=== PATIENT | female | born 1930 | race Caucasian/White ===

== ENCOUNTER → 2018-05-06 11:19 | Outpatient (CLI) | payer MEDICARE, BC ==
[2015-09-21 08:40] VITALS: BMI 20.3
[~2018-05-06 11:19] MED LIST: ALDACTONE25 MG PO; ALDACTONE50 MG PO; ASPIRIN EC81 M1 PO; ASPIRIN325 MG PO; CELEXA20 MG PO; COLACE100 MG PO; COREG 3.1253.125 MG PO; COUMADIN5 MG PO; HYDROCODONE-APA1 TAB PO; IPRAT-ALBUT 0.5-3 ML UPD; LANOXIN125 MCG PO; LASIX40 MG PO; LEVAQUIN250 MG PO; LISINOPRIL2.5 MG PO; LISINOPRIL5 MG PO; MIRALAX17 GM PO; NORCO 5/325 TAB1 TA1 PO; ONGLYZA5 MG PO; PERCOCET 10/3251 TA1 PO; PLAVIX75 MG PO; TEFLARO IV; TRADJENTA5 MG PO; ULTRAM50 MG PO; XARELTO10 MG; XARELTO15 MG PO
--- NOTE | 2018-05-07 11:54 | EC ---
PATIENT:NAWAF REGAN DATE OF SERVICE: 05/06/18 SEX: F MEDICAL RECORD: [id number] DATE OF : [birth year] LOCATION:[facility] AGE OF PATIENT: 87 ADMISSION DATE: 05/06/18 REFERRING PHYSICIAN: INTERPRETING PHYSICIAN: DAMASO ADAMS MD ECHOCARDIOGRAM REPORT ECHO CHARGES 4 ECHO COMPLETE Date: 05/06/18 CLINICAL DIAGNOSIS: AFIB HX OF PACER ECHOCARDIOGRAPHIC MEASUREMENTS (adult normal given) AC root (d.<3.7cm) 2.9 cm LV Septum d (<1.2 cm> 1.1 cm Valve Excursion 1.3 cm LV Septum (systole) 1.4 cm Left Atria (s.<4.0cm> 3.6 cm LVPW d(<1.2cm) 1.2 cm RV (d.<2.3cm) 3.3 cm LVPW (sytole) 1.7 cm LV diastole(<5.6CM) 5.5 cm MV E-F(>70mm/sec) cm LV systole 4.3 cm LVOT Diameter 1.7 cm MV exc.(>10mm) 1.3 cm Est.ejection fraction (50-75%) % DOPPLER: LVIT cm/sec A 67.0 cm/sec E 36.0 cm/sec LA cm/sec RVSP 23 mmHg LVOT 87 cm/sec AOP1/2T m/s Asc. Ao 123 cm/sec RVOT 67 cm/sec RA cm/sec PA 85 cm/sec AV Gradient Peak 6.02 mmHg AV Mean 3.02 mmHg AV Area 2.0 cm MV Gradient Peak 3.20 mmHg MV Mean 0.80 mmHg MV Area cm COMMENTS: Supervisor [employer]: Sherin CHEN [employer]otype Machinist: 1 Dr. Adams TAPE# PACS Pericardial Effusion N DATE OF SERVICE: 05/06/2018 PROCEDURE: Echocardiogram. FINDINGS: 1. Left ventricular chamber size is within normal limits. Left ventricular systolic function is mildly depressed, but preserved at 45%. 2. Left atrium, right atrium, and right ventricle chamber sizes are within normal limits. 3. Valvular structures have normal structure and motion. ECHOCARDIOGRAM REPORT [id number] NAWAF REGAN V STEI 4. Doppler interrogation reveals mild mitral regurgitation, mild tricuspid regurgitation, no other valvular insufficiency or stenosis. 5. No evidence of pericardial effusion or left ventricular thrombus. TRANSINT:[id number] Voice Confirmation ID: [id number] DOCUMENT ID: [id number] DAMASO ADAMS MD at 1154 CC: [id number] DICTATION DATE: 05/06/18 1540 QUILLER HAND: 05/07/18 0030 DEP CLI 05/06/18 [facility] [address] [id number]
== END | disposition home or self-care (01) ==
LOC: D.HCCARDIO 11:19
PROVIDERS: ATTEND Internal Medicine Interventional Cardiology
DX: I48.0 Paroxysmal atrial fibrillation (principal)